=== PATIENT | female | born 1980 | race Caucasian/White ===

== ENCOUNTER 2016-11-09 18:56 | Emergency (ER) | payer OTHER ==
[~2016-11-09] VITALS: Ht 172.7 cm; Wt 64.0 kg
[~2016-11-09 18:56] MED LIST: BENTYL20 MG PO; CARVEDILOL3.125 MG PO; CIPRO500 MG OR; CORTISPORIN OTI10 ML AD; MELOXICAM7.5 MG PO; NO MEDS; NORCO1 TA1 PO; PERCOCET 5/325M1 TAB PO; ROBITUSSIN AC10 ML PO; ULTRAM50 M1 PO; ZITHROMAX250 MG PO; ZITHROMAX500 MG PO; ZOFRAN4 M1 PO; ZOLOFT100 MG PO
[2016-11-09] MEDS ORDERED: CIPROFLOXACN500 MG PO (19:48)
[2016-11-09] MEDS ORDERED: LORTAB 10-325 M1 TAB PO (19:48)
[2016-11-09] MEDS ORDERED: FLOXIN OTIC0.3 % AS (19:48)
[2016-11-09 20:34] VITALS: BP 128/76
== END 2016-11-09 20:30 | disposition home or self-care (01) | DRG 153 ==
LOC: ED 18:56
DX: H66.92 Otitis media, unspecified, left ear (principal); C18.9 Malignant neoplasm of colon, unspecified; C73 Malignant neoplasm of thyroid gland; F32.9 Major depressive disorder, single episode, unspecified; F41.9 Anxiety disorder, unspecified

== ENCOUNTER 2016-12-14 16:24 | Emergency (ER) | payer MEDICAID ==
[~2016-12-14] VITALS: Ht 172.7 cm; Wt 65.0 kg
[~2016-12-14 16:24] MED LIST changes: +CIPROFLOXACN500 MG PO; +FLOXIN OTIC0.3 % AS; +LORTAB 10-325 M1 TAB PO
[2016-12-14 16:38] VITALS: BP 135/100
[2016-12-14 17:10] LABS: HEMATOCRIT 43.8 % (37.0-47.0); HEMOGLOBIN 14.5 g/dl (12.0-16.0); IMMATURE GRANULOCYTES 0.3 % (0.0-1.0); MEAN CORPUSCULAR HGB 30.5 pG CALC (26.0-32.0); MEAN CORPUSCULAR HGB CONC 33.1 g/L CALC (32.0-36.0); NEUT# 2.11 thou/uL (2.00-7.15); RED BLOOD COUNT 4.76 mill/uL (4.20-5.60); RED CELL DISTRI WIDTH 13.2 % (11.5-15.5)
[2016-12-14 17:22] LABS: ALBUMIN 4.5 g/dL (3.2-5.0); ALKALINE PHOSPHATASE 56 u/l (38-126); ANION GAP 20 (6-22 (CALC)); BILIRUBIN, TOTAL 0.5 mg/dL (0.0-1.4); BUN 3 mg/dL (7-17); BUN/CREATININE RATIO 5 (12-20 (CALC)); CALCIUM 9.2 mg/dL (8.4-10.2); CARBON DIOXIDE 22 mmol/l (22-30); CHLORIDE 107 mmol/l (95-108); CREATININE 0.7 mg/dL (0.5-1.0); GFR > 60 ML/MIN (>=60 (CALC)); GFR FOR AFR.AMER. > 60 ML/MIN (>=60 (CALC)); GLUCOSE 99 mg/dL (65-105); POTASSIUM 3.9 mmol/l (3.5-5.1); SGOT/AST 23 u/l (14-36); SGPT/ALT 25 u/l (9-52); SODIUM 145 mmol/l (137-146); TOTAL PROTEIN 7.7 g/dL (6.3-8.2)
[2016-12-14 17:33] LABS: MYOGLOBIN 22 ng/mL (0 - 62)
[2016-12-14 18:09] LABS: URINE BILIRUBIN - DIPSTICK NEGATIVE (NEGATIVE); URINE BLOOD DIPSTICK SMALL (NEGATIVE); URINE CLARITY CLEAR; URINE COLOR YELLOW; URINE GLUCOSE - DIPSTICK NEGATIVE (NEGATIVE); URINE KETONE NEGATIVE (NEGATIVE); URINE NITRITE - DIPSTICK NEGATIVE (Negative); URINE PH 6.5 (4.5-8.0); URINE PROTEIN - DIPSTICK NEGATIVE (NEG-TRACE); URINE UROBILINOGEN - DIPSTICK 0.2 E.U./dL (0.2)
[2016-12-14 18:10] LABS: URINE LEUK ESTERASE SMALL (NEGATIVE)
[2016-12-14] MEDS ORDERED: MEDDOSEPAK PO (18:16)
[2016-12-14] MEDS ORDERED: DOXYCYC MONO100 M1 PO (18:16)
[2016-12-14] MEDS ORDERED: ALBUTEROL SUL0.083 % IN (18:16)
[2016-12-14 18:17] LABS: URINE SQUAMOUS EPITHELIAL CELL FEW EPI/hpf (0-FEW)
== END 2016-12-14 18:53 | disposition home or self-care (01) | DRG 153 ==
LOC: ED 16:24
PROVIDERS: Emergency Medicine
DX: J06.9 Acute upper respiratory infection, unspecified (principal); R00.0 Tachycardia, unspecified; R06.02 Shortness of breath; R05 Cough; Z72.0 Tobacco use

== ENCOUNTER → 2018-04-26 | Outpatient (REF) | payer MEDICAID ==
[~2018-04-26] MED LIST changes: +ALBUTEROL SUL0.083 % IN; +DOXYCYC MONO100 M1 PO; +MEDDOSEPAK PO
== END | disposition home or self-care (01) | DRG 376 ==
LOC: MAMMO 04-18 11:00
PROVIDERS: ATTEND Internal Medicine
DX: C18.7 Malignant neoplasm of sigmoid colon (principal); C73 Malignant neoplasm of thyroid gland; R19.7 Diarrhea, unspecified; M25.9 Joint disorder, unspecified

== ENCOUNTER 2022-09-26 14:03 | Inpatient (IN) | payer BC ==
[~2022-09-26] VITALS: Ht 172.7 cm; Wt 68.0 kg
[2022-09-26] VITALS (12 sets, daily range): BP systolic 116–141; BP diastolic 78–99
--- NOTE | 2022-09-26 14:03 | NUR ---
PT ARRIVED VIA EMS TO ROOM 6 FOR TRIAGE C/O SOB FOR TWO DAYS. 10 MG OF DECADRON AND DUONEB ADMINISTERED PRIOR TO ARRIVAL
[2022-09-26 14:53] LABS: BASO% 0.5 % (0-3); EOS% 5.5 % (0-8); HEMOGLOBIN 12.8 g/dl (12.0-16.0); IMMATURE GRANULOCYTES 0.3 % (0.0-5.0); LYMPH% 12.4 % (15-41); MEAN CELL VOLUME 97.9 fL CALC (80.0-100.0); MEAN CORPUSCULAR HGB 30.5 pG CALC (26.0-32.0); MEAN CORPUSCULAR HGB CONC 31.2 g/dL CAL (32.0-36.0); MONO% 5.6 % (2-13); NEUT# 5.8 thou/uL (2.00-7.15); NEUT% 75.7 % (42-76); RED BLOOD COUNT 4.19 mill/uL (4.20-5.60); RED CELL DISTRI WIDTH 14.1 % (11.5-15.5)
[2022-09-26 15:04] LABS: ALBUMIN 4.2 g/dL (3.2-5.0); ALKALINE PHOSPHATASE 47 u/l (38-126); ANION GAP 15 (6-22 (CALC)); BILIRUBIN, TOTAL 0.5 mg/dL (0.02-1.3); BUN 3 mg/dL (7-17); BUN/CREATININE RATIO 5 (12-20 (CALC)); CARBON DIOXIDE 19 mmol/l (22-30); CHLORIDE 107 mmol/l (95-108); CREATININE 0.7 mg/dL (0.5-1.0); GFR FOR AFR.AMER. > 60 ML/MIN (>=60 (CALC)); GFR OTHER RACES > 60 ML/MIN (>=60 (CALC)); POTASSIUM 3.8 mmol/l (3.5-5.1); SODIUM 138 mmol/l (137-146); TOTAL PROTEIN 7.6 g/dL (6.3-8.2)
[2022-09-26 15:05] LABS: SGOT/AST 30 u/l (14-36)
--- NOTE | 2022-09-26 15:06 | NUR ---
PT IN ROOM RESTING WITH FAMILY MEMBERS IN ROOM. PT SATURATION IS AT 95 ON 5L O2 NASAL CANULA
--- NOTE | 2022-09-26 16:00 | NUR ---
PT UP TO BATHROOM. URINE SAMPLE COLLECTED.
--- NOTE | 2022-09-26 16:54 | NUR ---
PT GIVEN BREATHING TREATMENT PER eMAR
--- NOTE | 2022-09-26 17:55 | NUR ---
REVIEWED PATIENTS HOME MEDS WITH HER, ENTERED INTO SYSTEM.
[2022-09-26] MEDS ORDERED: LEVOTHYROXIN150 MC1 PO (18:02)
[2022-09-26] MEDS ORDERED: ALBUTEROL108 MCG/AC (18:02)
[2022-09-26] MEDS ORDERED: LISINOPRIL10 MG PO (18:02)
--- NOTE | 2022-09-26 18:03 | NUR ---
CONTACTED SUPERVISION FOR MAG SULFATE IT IS NOT AVAILABLE IN THE ER. PHARMACY NOT IN BUILDING
--- NOTE | 2022-09-26 18:03 | NUR ---
RT AT BEDSIDE FOR ADDITIONAL DUO NEB. PATIENT NOTES IMPROVED SOB
--- NOTE | 2022-09-26 18:20 | NUR ---
CALLED REPORT TO MED SURG SPOKE WITH NICK
--- NOTE | 2022-09-26 18:28 | NUR ---
PATIENT TRANSFERRED VIA WC TO MED SURG BED 269 ON TELE 5, NICK AT BEDSIDE. PATIENT ABLE TO TRANSFER TO BED WITHOUT ASSISTANCE. PLACED ON 2 L NC. MAG SULFATE HANDED OFF TO KELLER
[2022-09-26] MEDS ORDERED: PERCOCET 10/31 COMBO PO (18:49)
--- NOTE | 2022-09-26 19:22 | NUR ---
LAB CALLED WITH CRITICAL RESULT. TROPONIN 0.373. STAT EKG ORDERED, PT CURRENTLY LAYING IN BED ON LEFT SIDE, NASAL CANNULA IN PLACE ON 2L O2, DIAPHORETIC AND FEELING SOB. O2 SATURATION AT THIS TIME 98% DENIES ANY PAIN. TELE MONITOR DOES READ SINUS TACH 112-122 SINCE ADMISSION [facility] FLOOR. CALLED PHYSICIAN AND UPDATED ON PT STATUS AND CRITICAL TEST RESULT. VERBAL ORDER READ BACK FOR MEDICATION FAXED TO PHARMACY, EKG SCHEDULED ORDERED AND DUE AT 0100 ON 09/27.
--- NOTE | 2022-09-26 20:45 | NUR ---
PT IN BED AWAKE. PT REPORTS SOB WITH MOVEMENT. PT IS ON OXYGEN AT 2L VIA NASAL CANNULA O2 AT 97%. SHIFT ASSESMENT COMPLETED. WHEEZZING NOTED TO BILATERAL LOWER LOBES. IV TO LFA CURRENTLY INFUSING MAGNESIUM SULFATE AT 25mls/hr. FAMILY AT BEDSIDE. ON TELE ST. CALL LIGHT IN REACH AND BED IN LOWEST POSITION.
--- NOTE | 2022-09-26 21:30 | NUR ---
PT REPORTS PAIN WHEN TAKING A DEEP BREATH IN MIDSTERNAL AND BACK PAIN 08/01. PT STATES THAT PAIN DOES NOT RADIATE OR MOVE TO OTHER PARTS. DR CHING NOTIFIED AND ORDER TYLENOL AND REPEATE EKG DUE TO PT TROPONIN BEEN ELEVETED. EKG SEND TO AND ORDER TO REPEAT AT MID NIGHT.
[2022-09-27] VITALS (7 sets, daily range): BP systolic 107–131; BP diastolic 70–90
--- NOTE | 2022-09-27 02:03 | NUR ---
dr zuniga called to notify of eleveted troponin, doctor did not answer. I leave a voice mail for doctor to return call.
--- NOTE | 2022-09-27 02:23 | NUR ---
DR CHING NOTIFIED OF PT ELEVETED TROPONIN. AND REPETED EKG. DR ORDERED TO REPEAT EKG AT 5AM. PT IS CURRENTLY IN BED, DENIES CHEST PAIN. NO S/S OF DISTRESS NOTED. CALL LIGHT IN REACH AND BED IN LOWEST POSITION.
--- NOTE | 2022-09-27 04:15 | NUR ---
PT IN BED RESTING WITH EYES CLOSED BREATHING EVEN AND UNLABORED. NO S/S OF DISTRESS NOTED CALL LIGHT IN REACH AND BED IN LOWEST POSITION.
--- NOTE | 2022-09-27 08:00 | NUR ---
PT IN BED WITH HOB, ALERT ALN ORIENTED X3; PT HAS NO C/O PAIN AT THIS TIME. PT HAS O2 @ 2 LITERS ON VIA NC, O2 SATS 2 98 %. PT HAS TELE ON WITH ALL LEADS ATTACHED. IV SITE TO LFA CLEAN AND INTACT, SL. PT LUNG SOUNDS COARSE THROUGHOUT. BS ACTIVE. PT AMBUALTES WELL TO BATHROOM FOR TOILETING NEEDS. PT HAS CALL LIGHT WITHIN REACH AND ALL SAFETY MEASURES IN PLACE AT THIS TIME.
--- NOTE | 2022-09-27 10:00 | NUR ---
ER CALLED STATES HR IS IN THE 120'S. PT IS OUT OF BED IN BATHROOM. AFTER USING BATHROOM BACK TO BED AND O2 PLACED VIA NC. HR BACK DOWN TO 110 AND TRENDING DOWN. PT HAS NO C/O CHEST PAIN AT THIS TIME.
[2022-09-27 11:59] LABS: ALBUMIN 4.3 g/dL (3.2-5.0); ALKALINE PHOSPHATASE 56 u/l (38-126); BILIRUBIN, TOTAL 0.4 mg/dL (0.02-1.3); BUN 12 mg/dL (7-17); BUN/CREATININE RATIO 15 (12-20 (CALC)); CHLORIDE 107 mmol/l (95-108); CREATININE 0.8 mg/dL (0.5-1.0); GFR FOR AFR.AMER. > 60 ML/MIN (>=60 (CALC)); GFR OTHER RACES > 60 ML/MIN (>=60 (CALC)); POTASSIUM 3.9 mmol/l (3.5-5.1); SGOT/AST 33 u/l (14-36); SODIUM 140 mmol/l (137-146); TOTAL PROTEIN 7.7 g/dL (6.3-8.2)
[2022-09-27 12:12] LABS: ANION GAP 13 (6-22 (CALC)); CARBON DIOXIDE 24 mmol/l (22-30)
--- NOTE | 2022-09-27 12:15 | NUR ---
LAB CALLED WITH KANE ELLIOTT, NOTIFIED AND ORDER FOR REPEAT EKG AND CARDIOLOGY CONSULT GIVEN. ORDERED ENTERED TO BE DONE. PT STATES THAT SHE HAS NO CHEST TIGHTNESS AT THIS TIME. PT HAS CALL LIGHT WIHTIN REACH AND ALL SAFETY MEASURES IN PLACE.
--- NOTE | 2022-09-27 12:45 | NUR ---
EKG DONE AND REPORTED TO DR. JULES .
--- NOTE | 2022-09-27 12:49 | NUR ---
BOOKED A CARDIOLOGY CONSULT WITH DR MASON VIA THE [employer] [facility] [facility] AT 1249 HRS.
--- NOTE | 2022-09-27 13:15 | NUR ---
CARDIOLOGY CONSULT DONE AND NEW ORDERS RECEIVED. PT HAS NO C/O PAIN AT THIS TIME. PT HAS CALL LIGHT [employer] REACH AND ALL SAFETY MEASURES IN PLACE AT THIS TIME.
--- NOTE | 2022-09-27 16:15 | NUR ---
PT IN BED RESTING AT THIS TIME. PT HAS NO C/O PAIN. NO CHANGE IN STATUS AT THIS TIME. PT HAS CALL LIGHT WITHIN REACH AND ALL SAFETY MEASURES IN PLACE AT THIS TIME.
--- NOTE | 2022-09-27 19:25 | NUR ---
PT IN BED WITH FAMILY AT BEDSIDE. NO S/S OF DISTRESS NOTED. PT STATES FEEL AL LOT BETTER. TODAY. NO NEEDS OR CONCERNS VOIVED AT THIS TIME. CALL LIGHT IN REACH AND BED IN LOWEST POSITION.
--- NOTE | 2022-09-27 22:46 | NUR ---
PT IN BED AWAKE. SHIFT ASSESMNET COMPLETED. PT REPORTS A HEADACHE AND STATES TYLENOL DOES NOT REALLY HELP WITH HER HEADACHES AND REQUEST IBUPROFEN. DR CHING NOTIFIEDN AND ORDERED MED REQUESTED. PT MEDICATED ORDER. NO NEEDS OR VONCERN VOICED. CALL LIGHT IN REACH AND BED IN LOWEST POSITION.
--- NOTE | 2022-09-28 00:30 | NUR ---
PT IN BED RESTING WITH EYES CLOSED BREATHING IS EVEN AND UNLABORED. NO S/S OF DISTRESS NOTED. CALL LIGHT IN REACH AND BED IN LOWEST POSITION.
[2022-09-28 04:00] VITALS: BP 124/89
[2022-09-28 04:24] VITALS: BP 124/89
--- NOTE | 2022-09-28 04:25 | NUR ---
PT IN BED RESTING WITH EYES CLOSED BREATHING IS EVEN AND UNLABORED. NO S.S MIKAELA DISTRESS NOTED. CALL LIGHT IN REACH AND BED IN LOWEST POSITION.
[2022-09-28 06:07] LABS: HEMATOCRIT 41.3 % (37.0-47.0); HEMOGLOBIN 13.2 g/dl (12.0-16.0); MEAN CELL VOLUME 97.9 fL CALC (80.0-100.0); MEAN CORPUSCULAR HGB 31.3 pG CALC (26.0-32.0); RED BLOOD COUNT 4.22 mill/uL (4.20-5.60); RED CELL DISTRI WIDTH 14.9 % (11.5-15.5)
[2022-09-28 06:22] LABS: ALKALINE PHOSPHATASE 47 u/l (38-126); ANION GAP 13 (6-22 (CALC)); BILIRUBIN, TOTAL 0.5 mg/dL (0.02-1.3); BUN 15 mg/dL (7-17); BUN/CREATININE RATIO 26 (12-20 (CALC)); CARBON DIOXIDE 22 mmol/l (22-30); CHLORIDE 107 mmol/l (95-108); CREATININE 0.6 mg/dL (0.5-1.0); GFR FOR AFR.AMER. > 60 ML/MIN (>=60 (CALC)); GFR OTHER RACES > 60 ML/MIN (>=60 (CALC)); POTASSIUM 4.4 mmol/l (3.5-5.1); SGOT/AST 22 u/l (14-36); SODIUM 137 mmol/l (137-146); TOTAL PROTEIN 7.1 g/dL (6.3-8.2)
[2022-09-28 06:25] LABS: CALCULATED LDLCHOLESTEROL 73 mg/dL (62-129 (CALC)); CHOLESTEROL HDL RATIO 2.5 (<4.4 (CALC)); HDL CHOLESTEROL 68 mg/dL (39.0-59.0); MAGNESIUM 2.4 mg/dL (1.6-2.3); TOTAL CHOLESTEROL 167 mg/dl (0-199); TOTAL TRIGLYCERIDES 131 mg/dl (0-149); VLDL CHOLESTROL 26 mg/dl (1-41 (CALC))
--- NOTE | 2022-09-28 06:45 | NUR ---
PT TROPONIN IS AM IS 0.183. DR CHING IS AT READY AWARE OF THE TREND.
--- NOTE | 2022-09-28 07:45 | NUR ---
PATIENT RESTING AFTER RETURNING FROM THE BATHROOM WITH SELF CARE. PATIENT REPORTS FEELING BETTER BUT STILL SOB WITH EXERTION ON 2L NC PRN. WILL DO A WALK TEST LATER. SHE REPORTS JOINT PAIN THAT IS CHRONIC WILL INFORM MD THAT SHE STATES TAKING PERCOCET AT HOME.
[2022-09-28 08:52] VITALS: BP 130/74
[2022-09-28 10:32] VITALS: BP 129/74
--- NOTE | 2022-09-28 12:09 | NUR ---
PATIENT RESTING WITH FAMILY AT BEDSIDE. PATIENT REPORTS FEELING BETTER. WILL CONTINUE TO MONITOR.
--- NOTE | 2022-09-28 15:07 | NUR ---
PATIENT RESTING REPORTED MILD HEADACHE NURSE PROVIDED IBUPROFEN AND FOLLOWUP SHE REPORTS FEELING BETTER.
--- NOTE | 2022-09-28 16:25 | NUR ---
PT IN BED WITH FAMILY AT BEDSIDE. PT HAS NO C/O PAIN AT THIS TIME. PT CONTINUES WITH O2 @ 2 LITERS VIA NC. PT HAS NO CHANGE IN STATUS AT THIS TIME. PT HAS CALL LIGHT WITHIN REACH AND ALL SAFETY MEASURES IN PLACE AT THIS TIME.
[2022-09-28 17:27] VITALS: BP 117/71
--- NOTE | 2022-09-28 19:22 | NUR ---
REPORT RECEIVED FROM William TORRES LPN.
--- NOTE | 2022-09-28 20:30 | NUR ---
PATIENT RESTING IN BED, TALKING ON PHONE WITH HER SISTER. PATIENT DENIES ANY CURRENT COMPLIAINTS AT THIS TIME. NO PAIN REPORTED. CALL LIGHT AND BEDSIDE TABLE WITHIN REACH.
[2022-09-28 21:46] VITALS: BP 145/85
--- NOTE | 2022-09-29 | NUR ---
PATIENT RESTING IN BED. RESPIRATIONS EVEN AND UNLABORED. RISE AND FALL OF CHEST NOTED, CALL LIGHT AND BEDSIDE TABLE WITHIN REACH.
[2022-09-29 00:13] VITALS: BP 133/82
--- NOTE | 2022-09-29 04:45 | NUR ---
PATIENT RESTING IN BED. NO APPARENT DISTRESS NOTED. RESPIRATIONS EVEN AND UNLABORED. RISE AND FALL OF CHEST NOTED. CALL LIGHT AND BEDSIDE TABLE WITHIN REACH.
[2022-09-29 04:55] VITALS: BP 127/92
[2022-09-29 05:23] LABS: HEMATOCRIT 40.4 % (37.0-47.0); HEMOGLOBIN 12.8 g/dl (12.0-16.0); IMMATURE GRANULOCYTES 0.2 % (0.0-5.0); LYMPH% 10.1 % (15-41); MEAN CELL VOLUME 98.1 fL CALC (80.0-100.0); MEAN CORPUSCULAR HGB 31.1 pG CALC (26.0-32.0); MEAN CORPUSCULAR HGB CONC 31.7 g/dL CAL (32.0-36.0); NEUT# 6.82 thou/uL (2.00-7.15); NEUT% 84.7 % (42-76); RED BLOOD COUNT 4.12 mill/uL (4.20-5.60); RED CELL DISTRI WIDTH 14.6 % (11.5-15.5)
[2022-09-29 05:39] LABS: ALBUMIN 3.8 g/dL (3.2-5.0); ALKALINE PHOSPHATASE 43 u/l (38-126); ANION GAP 13 (6-22 (CALC)); BILIRUBIN, TOTAL 0.4 mg/dL (0.02-1.3); BUN 16 mg/dL (7-17); BUN/CREATININE RATIO 28 (12-20 (CALC)); CARBON DIOXIDE 20 mmol/l (22-30); CHLORIDE 107 mmol/l (95-108); CREATININE 0.6 mg/dL (0.5-1.0); GFR FOR AFR.AMER. > 60 ML/MIN (>=60 (CALC)); GFR OTHER RACES > 60 ML/MIN (>=60 (CALC)); MAGNESIUM 2.2 mg/dL (1.6-2.3); POTASSIUM 4.8 mmol/l (3.5-5.1); SGOT/AST 22 u/l (14-36); SODIUM 135 mmol/l (137-146); TOTAL PROTEIN 6.8 g/dL (6.3-8.2)
[2022-09-29 07:11] VITALS: BP 125/72
--- NOTE | 2022-09-29 08:00 | NUR ---
PT IN BED RESTING WITH EYED CLOSED, AWAKENED TO VERBAL STIMULI. PT HAS C/O HEADACHE, PT WAS PREVIOUSLY MEDICATED BY INFORMATION SYSTEMS TECHNICIAN. PT CONTINUED TO WEAR O2 @ 2 LITERS VIA NC. TELE ON WITH ALL LEADS ATTACHED. IV SITE R WRIST CLEAN AND INTACT, SL. LUNG SOUNDS COARSE THROUGHOUT. PT AMBULATED TO BATHROOM FOR TOILETING NEEDS. PT HAS CALL LIGHT WITHIN REACH AND ALL SAFETY MEASURES IN PLACE AT THIS TIME.
[2022-09-29 11:41] VITALS: BP 140/83
[2022-09-29 11:42] VITALS: BP 140/83
--- NOTE | 2022-09-29 12:00 | NUR ---
PT WALKING AROUND UNIT WITHOUT O2, PT TOLERATING WELL. O2 SATS @ 95%. PT HAS FAMILY WALKING WITH HER. PT HAS SAFETY MEASURES IN PLACE.
[2022-09-29] MEDS ORDERED: SINGULAIR10 MG PO (12:50)
[2022-09-29] MEDS ORDERED: SYMBICORT 80-4.5MCG IN (12:53)
[2022-09-29] MEDS ORDERED: PREDNISONE10 MG PO (12:54)
--- NOTE | 2022-09-29 14:04 | NUR ---
Discharge instructions given. Patient verbalizes understanding of same. Discharged in stable condition via Wheelchair to Home with spouse. All belongings sent with pt.
== END 2022-09-29 14:03 | disposition home or self-care (01) | DRG 202 ==
LOC: ED 14:03 → ED-I 17:47 → MS2 18:02 → ED 18:02 → MS2 09-28 21:09
PROVIDERS: Family Medicine; Nurse Practitioner Family; ADMIT Student in an Organized Health Care Education/Training Program; ATTEND Student in an Organized Health Care Education/Training Program
DX: J45.901 Unspecified asthma with (acute) exacerbation (principal); I24.8 Other forms of acute ischemic heart disease; K91.2 Postsurgical malabsorption, not elsewhere classified; R09.02 Hypoxemia; I10 Essential (primary) hypertension; E89.0 Postprocedural hypothyroidism; F17.200 Nicotine dependence, unspecified, uncomplicated; Y83.6 Removal of other organ (partial) (total) as the cause of abnormal reaction of the patient, or of later complication, without mention of misadventure at the time of the procedure; Z85.850 Personal history of malignant neoplasm of thyroid; Z90.49 Acquired absence of other specified parts of digestive tract; Z85.038 Personal history of other malignant neoplasm of large intestine; Z82.49 Family history of ischemic heart disease and other diseases of the circulatory system; Z20.822 Contact with and (suspected) exposure to COVID-19
CPT/HCPCS: J1650; J3475; Q9967